=== PATIENT | male | born 1985 | race Caucasian/White ===

== ENCOUNTER 2017-02-09 09:03 | Emergency (ER) | payer SELFPAY ==
[~2017-02-09] VITALS: Ht 177.8 cm; Wt 77.0 kg
[2017-02-09 09:05] VITALS: BP 131/78; PULSE 97; RESP 14; TEMP 100.2; O2SAT 98
--- NOTE | 2017-02-09 09:42 | PD ---
HPI Chief Complaint: Skin Problem Time Seen by Provider: 09:41 Travel History International Travel<30 days: No Contact w/Intl Traveler<30days: No Traveled to known affect area: No History of Present Illness HPI 31-year-old male came to the emergency room saying he has been feeling extremely bad and that his "liver is hurting". He points to his right upper quadrant saying he has sharp pain. Last night he had a temperature 104.5 that he actually measured. He went to work today. He works at a [employer]. Given how he looked he was sent to be seen in the emergency room by his boss. Patient also shows the bumps on his upper and lower extremity which started yesterday and says they're very itchy. No history of vomiting or diarrhea. Patient says he feels very dehydrated however. He has history of hepatitis C that was diagnosed in 2011 he thinks when he was in [facility]. 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 He is convinced that his hepatitis is acting up. He had a temperature of 100.2 in the triage. Duration of the pain from the right upper quadrant. He seemed uncomfortable. Patient has been seen multiple times in the past in this hospital and the department. Liver functions have been within acceptable range at all times. He has been tested positive for cocaine in the past but patient says he hasn't used any drugs in months. PFSH Past Medical History Narrative Medical List of his past medical, surgical, social and family history is reviewed from the nursing note. Bipolar Disorder: Yes Anxiety: Yes Diminished Hearing: No Hepatitis: Yes (C) Medical other: Yes Psychiatric: Yes Immunizations Current: Yes Tetanus Vaccination: < 5 Years Influenza Vaccination: Yes Past Surgical History Surgical History: No Previous Surgery Social History Alcohol Use: No Tobacco Use: Yes (1 pack per day) Substance Use: Yes (dilaudid in the past ) Allergies-Medications (Allergen,Severity, Reaction): Coded Allergies: No Known Allergies (Unverified , 02/09/17) Comments No known drug allergies. Reported Meds & Prescriptions Reported Meds & Active Scripts Active Benadryl Allergy (Diphenhydramine HCl) 25 Mg Tablet 1 Tab PO Q6HR PRN Ibuprofen 600 Mg Tab 600 Mg PO Q6H PRN Narrative Medication List of his home medications reviewed from the nursing note. Review of Systems Except as stated in HPI: all other systems reviewed are Neg General / Constitutional: Positive: Fever Gastrointestinal: Positive: Abdominal Pain Physical Exam Narrative GENERAL: Awake, alert, moderate distress SKIN: Focused skin assessment warm/dry. Skin is dry and peeling especially on the back. Right upper extremity has multiple papular, erythematous about 0.5 cm to 1 cm diameter rash. They're also present in the lower extremities but the right upper extremity is most prominent. HEAD: Atraumatic. Normocephalic. EYES: Pupils equal and round. No scleral icterus. No injection or drainage. ENT: No nasal bleeding or discharge. Mucous membranes pink and moist. NECK: Trachea midline. No JVD. CARDIOVASCULAR: Regular rate and rhythm. No murmur appreciated. RESPIRATORY: No accessory muscle use. Clear to auscultation. Breath sounds equal bilaterally. GASTROINTESTINAL: Abdomen soft, significant tenderness in the right upper quadrant, nondistended. Hepatic and splenic margins not palpable. MUSCULOSKELETAL: No obvious deformities. No clubbing. No cyanosis. No edema. NEUROLOGICAL: Awake and alert. No obvious cranial nerve deficits. Motor grossly within normal limits. Normal speech. PSYCHIATRIC: Appropriate mood and affect; insight and judgment normal. Data Data Last Documented VS Orders Orders Complete Blood Count With Diff (02/09/17 09:46) Comprehensive Metabolic Panel (02/09/17 09:46) Prothrombin Time / Inr (Pt) (02/09/17 09:46) Lactic Acid Sepsis Protocol (02/09/17 09:46) Urinalysis - C+S If Indicated (02/09/17 09:46) Blood Culture (02/09/17 09:46) Chest, Single Ap (02/09/17 09:46) Blood Glucose (02/09/17 09:46) Ecg Monitoring (02/09/17 09:46) Iv Access Insert/Monitor (02/09/17 09:46) Oximetry (02/09/17 09:46) Oxygen Administration (02/09/17 09:46) Ibuprofen (Motrin) (02/09/17 10:00) Sodium Chlor 0.9% 1000 Ml Inj (Ns 1000 M (02/09/17 09:46) Sodium Chlor 0.9% 1000 Ml Inj (Ns 1000 M (02/09/17 09:46) Sodium Chlor 0.9% 1000 Ml Inj (Ns 1000 M (02/09/17 09:46) Ct Abd/Pel W Iv Contrast(Rout) (02/09/17 ) Iohexol 350 Inj (Omnipaque 350 Inj) (02/09/17 11:35) Diphenhydramine Inj (Benadryl Inj) (02/09/17 12:00) Ed Discharge Order (02/09/17 12:35) Labs Laboratory Tests Test 02/09/17 10:02 02/09/17 11:31 White Blood Count 13.4 TH/MM3 Red Blood Count 4.86 MIL/MM3 Hemoglobin 14.6 GM/DL Hematocrit 43.1 % Mean Corpuscular Volume 88.7 FL Mean Corpuscular Hemoglobin 30.1 PG Mean Corpuscular Hemoglobin Concent 33.9 % Red Cell Distribution Width 14.3 % Platelet Count 194 TH/MM3 Mean Platelet Volume 8.2 FL Neutrophils (%) (Auto) 83.4 % Lymphocytes (%) (Auto) 7.5 % Monocytes (%) (Auto) 8.3 % Eosinophils (%) (Auto) 0.5 % Basophils (%) (Auto) 0.3 % Neutrophils # (Auto) 11.2 TH/MM3 Lymphocytes # (Auto) 1.0 TH/MM3 Monocytes # (Auto) 1.1 TH/MM3 Eosinophils # (Auto) 0.1 TH/MM3 Basophils # (Auto) 0.0 TH/MM3 CBC Comment DIFF FINAL Differential Comment Prothrombin Time 12.8 SEC Prothromb Time International Ratio 1.2 RATIO Blood Urea Nitrogen 9 MG/DL Creatinine 1.06 MG/DL Random Glucose 94 MG/DL Total Protein 6.9 GM/DL Albumin 3.4 GM/DL Calcium Level 8.7 MG/DL Alkaline Phosphatase 67 U/L Aspartate Amino Transf (AST/SGOT) 64 U/L Alanine Aminotransferase (ALT/SGPT) 85 U/L Total Bilirubin 1.3 MG/DL Sodium Level 134 MEQ/L Potassium Level 4.1 MEQ/L Chloride Level 102 MEQ/L Carbon Dioxide Level 24.4 MEQ/L Anion Gap 8 MEQ/L Estimat Glomerular Filtration Rate 83 ML/MIN Lactic Acid Level 1.6 mmol/L Urine Color YELLOW Urine Turbidity CLEAR Urine pH 6.0 Urine Specific [place] 1.007 Urine Protein NEG mg/dL Urine Glucose (UA) NEG mg/dL Urine Ketones NEG mg/dL Urine Occult Blood NEG Urine Nitrite NEG Urine Bilirubin NEG Urine Urobilinogen LESS THAN 2.0 MG/DL Urine Leukocyte Esterase NEG Urine RBC LESS THAN 1 /hpf Urine WBC LESS THAN 1 /hpf Microscopic Urinalysis Comment CULT NOT INDICATED MDM Medical Decision Making Medical Screen Exam Complete: Yes Emergency Medical Condition: Yes Medical Record Reviewed: Yes Differential Diagnosis Acute cholecystitis, hepatitis, sepsis, viral illness, bug bite Narrative Course 12:45 PM blood test results of back patient has some leukocytosis and left shift. Chemistry is overall within acceptable limit. LFTs are slightly elevated. There however still and double digits. X-ray of the chest and CT scan of the abdomen and pelvis are within normal limits. UA was negative. Patient was given IV fluid as per sepsis protocol and by mouth Motrin. He was complaining of his rash being itchy and I have given him IV Benadryl. I'm comfortable discharging him home at this point since his lactic acid is negative. Blood culture pending. Procedures EKG Prior to Arrival: No Diagnosis Primary Impression: Fever Qualified Codes: R50.9 - Fever, unspecified Additional Impressions: Viral illness Insect bite Qualified Codes: W57.XXXA - Bitten or stung by nonvenomous insect and other nonvenomous arthropods, initial encounter Referrals: Primary Care Physician 2 days Additional Instructions: Please return to the ER if the condition worsens or any other new concerns. Make sure you drink lots of fluid. Do not take any medication that has Tylenol product in it. Take the medication prescribed to you. Follow-up with primary care if possible. Med/Other Pt SpecificInfo: Prescription(s) given Scripts Diphenhydramine HCl (Benadryl Allergy) 25 Mg Tablet 1 TAB PO Q6HR Y for for itching, #20 Prov: Sampson Santillan MD 02/09/17 Ibuprofen (Ibuprofen) 600 Mg Tab 600 MG PO Q6H Y for Pain/Inflammation, #40 TAB 0 Refills Prov: Sampson Santillan MD 02/09/17 Disposition: 01 DISCHARGE HOME Condition: Stable Sampson Santillan MD Feb 09, 2017 09:42
[2017-02-09] MEDS ORDERED: SODIUM CHLOR 0.9% 1000 ML INJ 400 ML IV ONE (09:46)
[2017-02-09] MEDS ORDERED: SODIUM CHLOR 0.9% 1000 ML INJ 1,000 ML IV ONE ×2 (09:46)
[2017-02-09 09:53] VITALS: RESP 17; O2SAT 98
[2017-02-09] MEDS ORDERED: IBUPROFEN 600 MG TAB PO ONE (10:00)
--- NOTE | 2017-02-09 10:24 | RADRPT ---
EXAM DATE/TIME: 02/09/2017 10:12 [facility] COMPARISON: CHEST SINGLE AP, April 20, 2016, 5:56. INDICATIONS : Fever. MEDICAL HISTORY : Hepatitis C. SURGICAL HISTORY : None. ENCOUNTER: Initial ACUITY: 1 day PAIN SCORE: 0/10 LOCATION: Bilateral chest FINDINGS: A single view of the chest demonstrates the lungs to be symmetrically aerated without evidence of mas s, infiltrate or effusion. The cardiomediastinal contours are unremarkable. Osseous structures are intact. CONCLUSION: Normal examination for a patient of this age. No significant change has occurred. Gage Franco MD on February 09, 2017 at 10:22 Board Certified Radiologist. This report was verified electronically.
[2017-02-09 10:43] LABS: AUTOMATED NEUTROPHIL # 11.2 TH/MM3 (1.8-7.7); BASOPHIL % 0.3 % (0.0-2.0); EOSINOPHIL # 0.1 TH/MM3 (0-0.4); EOSINOPHIL % 0.5 % (0.0-4.0); HEMATOCRIT 43.1 % (39.0-51.0); HEMO FLAGS DIFF FINAL; LYMPH % 7.5 % (9.0-44.0); MEAN CELL VOLUME 88.7 FL (80.0-100.0); MEAN CORPUSCULAR HEMOGLOBIN 30.1 PG (27.0-34.0); MEAN CORPUSCULAR HGB CONC 33.9 % (32.0-36.0); MONO % 8.3 % (0.0-8.0); NEUT % 83.4 % (16.0-70.0); PLATELET COUNT 194 TH/MM3 (150-450); RED BLOOD COUNT 4.86 MIL/MM3 (4.50-5.90); RED CELL DISTRIBUTION WIDTH 14.3 % (11.6-17.2); WHITE BLOOD COUNT 13.4 TH/MM3 (4.0-11.0)
[2017-02-09 10:53] LABS: INTERNATIONAL NORMALIZED RATIO 1.2 RATIO; PROTHROMBIN TIME - PATIENT 12.8 SEC (9.8-11.6)
[2017-02-09 11:13] LABS: ANION GAP 8 MEQ/L (5-15); BICARBONATE 24.4 MEQ/L (21.0-32.0); BLOOD UREA NITROGEN 9 MG/DL (7-18); CHLORIDE 102 MEQ/L (98-107); GLOMERULAR FILTRATION RATE 83 ML/MIN (>89); SODIUM (NA) 134 MEQ/L (136-145)
[2017-02-09 11:14] LABS: AST (GOT) 64 U/L (15-37); POTASSIUM 4.1 MEQ/L (3.5-5.1)
[2017-02-09 11:17] LABS: ALKALINE PHOSPHATASE 67 U/L (45-117); ALT (GPT) 85 U/L (12-78); TOTAL BILIRUBIN ADULT 1.3 MG/DL (0.2-1.0)
[2017-02-09] MEDS ORDERED: IOHEXOL 350 MG/ML 10 ML VIAL (for RAD DIAG) IVCONTRAST ONE (11:35)
[2017-02-09 11:42] LABS: BLOOD, URINE NEG (NEG); GLUCOSE,URINE NEG (NEG); KETONE, URINE NEG (NEG); NITRITE,URINE NEG (NEG); URINE COLOR YELLOW (YELLW/STRAW)
--- NOTE | 2017-02-09 11:44 | RADRPT ---
EXAM DATE/TIME: 02/09/2017 11:20 [facility] COMPARISON: CT ABDOMEN & PELVIS W/O CONTRAST, March 30, 2015, 19:07. CT ABDOMEN & PELVIS W/O CONTRAST, [facility] 2015, 6:38. INDICATIONS : Upper abdominal pain for 2 days. IV CONTRAST: 72 cc Omnipaque 350 (iohexol) IV ORAL CONTRAST: No oral contrast ingested. RADIATION DOSE: 6.64 CTDIvol (mGy) MEDICAL HISTORY : None SURGICAL HISTORY : None. ENCOUNTER: Initial ACUITY: 2 days PAIN SCALE: 4/10 LOCATION: Bilateral upper quadrant TECHNIQUE: Volumetric scanning of the abdomen and pelvis was performed. Using automated exposure control and ad justment of the mA and/or kV according to patient size, radiation dose was kept as low as reasonably achievable to obtain optimal diagnostic quality images. DICOM format image data is available electro nically for review and comparison. FINDINGS: LOWER LUNGS: The visualized lower lungs are clear. LIVER: Homogeneous density without lesion. There is no dilation of the biliary tree. No calcified gallston es. SPLEEN: Normal size without lesion. PANCREAS: Within normal limits. KIDNEYS: Normal in size and shape. There is no mass or hydronephrosis. There is a stable 2 mm nonobstructing left renal stone. ADRENAL GLANDS: Within normal limits. VASCULAR: There is no aortic aneurysm. BOWEL/MESENTERY: The stomach, small bowel, and colon demonstrate no acute abnormality. There is no free intraperitone al air or fluid. Appendix is normal. ABDOMINAL WALL: Within normal limits. RETROPERITONEUM: There is no lymphadenopathy. BLADDER: No wall thickening or mass. REPRODUCTIVE: Within normal limits. INGUINAL: There is no lymphadenopathy or hernia. MUSCULOSKELETAL: No acute abnormality. CONCLUSION: 1. No abnormality is identified to explain the clinical symptoms. No acute finding is present. 2. Stable 2 mm nonobstructing left renal stone. Kye Ramirez MD on February 09, 2017 at 11:38 Board Certified Radiologist. This report was verified electronically.
[2017-02-09 11:57] LABS: COMMENT (UR) CULT NOT INDICATED; CULTURE IF INDICATED CULT NOT INDICATED
[2017-02-09] MEDS ORDERED: diphenhydrAMINE HCL 50 MG/ML VIAL IV PUSH ONE (12:00)
[2017-02-09 12:03] VITALS: BP 113/64; PULSE 67; RESP 20; O2SAT 100
[2017-02-09] MEDS ORDERED: BENA25TA6 PO (12:48)
[2017-02-09] MEDS ORDERED: IBUP-232 PO (12:48)
[2017-02-09 12:55] VITALS: BP 126/83; TEMP 97.8
== END 2017-02-09 12:55 | disposition home or self-care (01) ==
LOC: NEPD 09:03
DX: R50.9 Fever, unspecified (principal); B19.20 Unspecified viral hepatitis C without hepatic coma; F17.200 Nicotine dependence, unspecified, uncomplicated; T14.8XXA Other injury of unspecified body region, initial encounter; W57.XXXA Bitten or stung by nonvenomous insect and other nonvenomous arthropods, initial encounter
CPT/HCPCS: 71010; 74177; 80053; 81001; 83605; 85025; 85610; 87040; 96361; 96374; 99285; J1200; J7030; Q9967